=== PATIENT | male | born 1940 | race Caucasian/White ===

== ENCOUNTER 2022-01-28 22:12 | Emergency (ER) | payer MEDICARE, OTHER ==
[2022-01-28 22:46] LABS: BILIRUBIN,URINE NEGATIVE (NEGATIVE); GLUCOSE, URINE (UA) NEGATIVE (NEGATIVE); KETONES,URINE (UA) NEGATIVE (NEGATIVE); LEUKOCYTE ESTERASE, URINE SMALL (NEGATIVE); NITRITE,URINE NEGATIVE (NEGATIVE); OCCULT BLOOD,URINE SMALL (NEGATIVE); PROTEIN,URINE TRACE mg/dL (NEGATIVE); UROBILINOGEN,URINE 0.2 (NORMAL) E.U./dL (NORMAL)
[2022-01-28 22:54] LABS: CLARITY,URINE HAZY (CLEAR)
[2022-01-28 22:56] LABS: BACTERIA,URINE Many /HPF (None Seen); SQUAMOUS EPITHELIAL CELL,UR RARE Squamous (<= Few); WBC,URINE >25 /HPF (0-3)
[2022-01-28] MEDS ORDERED: cefTRIAXone 1 GM VIAL IM STA (23:46)
[2022-01-28] MEDS ORDERED: LIDOCAINE 1% 2 ML VIAL MC ONE (23:46)
--- NOTE | 2022-01-28 23:49 | ED Physician Documentation ---
History of Present Illness - Stated complaint Stated Complaint: MALE - Chief complaint Chief Complaint: UTI - History obtained from History obtained from: Patient - History of Present Illness Timing: Today Pain level max: 3 Pain level now: 2 - Additonal information Additional information: Patient is an 81-year-old male who presents to the emergency department with dysuria and urinary frequency today. Similar to prior UTIs. No fever. No chills. No back pain. No vomiting. No nausea. No abdominal pain. He states that his doctor called an antibiotic in for him but he has not been able to get to the pharmacy today to pick it up. He is unsure which antibiotic it is. Review of Systems Constitutional: denies: Fever, Chills Cardiac: denies: Chest pain / pressure, Palpitations Respiratory: denies: Cough GI: reports: Other (No pain with bowel movements.). denies: Vomiting, Diarrhea, Hematemesis : reports: Other (Has a history of prostate enlargement and UTIs, this feels similar) Skin: denies: Rash Musculoskeletal: denies: Neck pain PD PAST MEDICAL HISTORY - Past Medical History Past Medical History: Yes Cardiovascular: Hypertension, High cholesterol Endocrine/Autoimmune: HyPOthyroidism : Benign prostate hypertrophy - Past Surgical History Past Surgical History: Yes General: Hiatal hernia repair Cardiovascular: Other - Allergies Allergies/Adverse Reactions: Allergies Allergy/AdvReac Type Severity Reaction Status Date / Time lisinopril Allergy Respiratory Verified 01/28/22 22:32 - Social History Does the pt smoke?: No Smoking Status: Never smoker Does the pt drink ETOH?: No Does the pt have substance abuse?: No - Immunizations Immunizations are current?: Yes PD ED PE NORMAL - Vitals Vital signs reviewed: Yes - General General: Alert and oriented X 3, No acute distress - HEENT HEENT: Moist mucous membranes - Neck Neck: Supple, no meningeal sign - Cardiac Cardiac: RRR - Respiratory Respiratory: No respiratory distress, Clear bilaterally - Abdomen Abdomen: Soft, Non tender, Non distended - Back Back: No CVA TTP - Derm Derm: Warm and dry - Neuro Neuro: Alert and oriented X 3 Results - Vitals Vitals: Vital Signs - 24 hr 01/28/22 22:28 Temperature 36.6 C Heart Rate 74 Respiratory 18 Rate Blood Pressure 185/85 H O2 Saturation 98 Oxygen O2 Source Room air - Labs Labs: Laboratory Tests 01/28/22 22:35 Urine Color YELLOW Urine Clarity HAZY Urine pH 6.0 Ur Specific [place] 1.025 Urine Protein TRACE Urine Glucose (UA) NEGATIVE Urine Ketones NEGATIVE Urine Occult Blood SMALL H Urine Nitrite NEGATIVE Urine Bilirubin NEGATIVE Urine Urobilinogen 0.2 (NORMAL) Ur Leukocyte Esterase SMALL H Urine RBC 6-10 H Urine WBC >25 H Ur Squamous Epith Cells RARE Squamous Urine Bacteria Many H Ur Microscopic Review INDICATED Urine Culture Comments INDICATED PD MEDICAL DECISION MAKING - ED course Complexity details: reviewed results, considered differential (No evidence of pyelonephritis, sepsis, fever.), d/w patient ED course: 81-year-old male with a UTI. Given a dose of Rocephin here. He will start his antibiotic from his doctor tomorrow. He is unsure what antibiotic they called in. Patient counseled regarding signs and symptoms for which I believe and urgent re-evaluation would be necessary. Patient with good understanding of and agreement to plan and is comfortable going home at this time This document was made in part using voice recognition software. While efforts are made to proofread this document, sound alike and grammatical errors may occur. Departure - Departure Disposition: 01 Home, Self Care Clinical Impression: UTI (urinary tract infection) Qualifiers: Urinary tract infection type: acute cystitis Hematuria presence: without hematuria Qualified Code(s): N30.00 - Acute cystitis without hematuria Condition: Good Instructions: ED UTI Cystitis Male Follow-Up: Matt Mixon MD [Primary Care Provider] - Within 1 week Comments: Please start the antibiotics that were called in by your doctor tomorrow. You were given Rocephin tonight. Please return if you worsen.
[2022-01-28 23:59] VITALS: BP 155/82
== END 2022-01-29 00:06 | disposition home or self-care (01) ==
LOC: ED 22:12
DX: N30.00 Acute cystitis without hematuria (principal)
CPT/HCPCS: 81001; 81003; 87086; 87181; 96372; 99282; 99283

== ENCOUNTER 2022-01-29 18:58 | Emergency (ER) | payer MEDICARE ==
[2022-01-29] MEDS ORDERED: LIDOCAINE 2% URO-JET 5 ML SYRINGE UR STA (19:54)
--- NOTE | 2022-01-29 20:16 | ED Physician Documentation ---
PD HPI MALE - Stated complaint Stated Complaint: MALE - Chief complaint Chief Complaint: UTI - History obtained from History obtained from: Patient - History of Present Illness Timing - onset: Today Timing - duration: Days (1) Timing - details: Gradual onset Pain level max: 4 Pain level now: 3 - Additional information Additional information: Patient is an 81-year-old male who presents to the emergency department after being diagnosed with a UTI yesterday. He was given a shot of Rocephin yesterday. Picked up oral antibiotics from his doctor today. He states he is having difficulty urinating and feeling like he is not emptying his bladder fully. He states that he has needed a catheter in the past when he has a UTI. He is here requesting the catheter be placed. Review of Systems Constitutional: denies: Fever, Chills GI: denies: Abdominal Pain, Vomiting, Diarrhea Skin: denies: Rash Musculoskeletal: denies: Neck pain, Back pain Neurologic: denies: Headache PD PAST MEDICAL HISTORY - Past Medical History Past Medical History: Yes Cardiovascular: Hypertension, High cholesterol Endocrine/Autoimmune: HyPOthyroidism : Benign prostate hypertrophy - Past Surgical History Past Surgical History: Yes General: Hiatal hernia repair Cardiovascular: Other - Allergies Allergies/Adverse Reactions: Allergies Allergy/AdvReac Type Severity Reaction Status Date / Time lisinopril Allergy Respiratory Verified 01/29/22 19:09 [id number] Reductase AdvReac Hives Verified 01/29/22 19:09 Inhibitor - Social History Does the pt smoke?: No Smoking Status: Never smoker Does the pt drink ETOH?: No Does the pt have substance abuse?: No - Immunizations Immunizations are current?: Yes PD ED PE NORMAL - Vitals Vital signs reviewed: Yes - General General: Alert and oriented X 3, No acute distress, Well developed/nourished - HEENT HEENT: Moist mucous membranes - Neck Neck: Supple, no meningeal sign - Cardiac Cardiac: RRR - Respiratory Respiratory: No respiratory distress, Clear bilaterally - Abdomen Abdomen: Soft, Non tender, Non distended - Back Back: No CVA TTP - Derm Derm: Warm and dry - Neuro Neuro: Alert and oriented X 3 - Psych Psych: Normal mood, Normal affect Results - Vitals Vitals: Vital Signs - 24 hr 01/29/22 01/29/22 01/29/22 19:10 19:59 20:23 Temperature 36.7 C 36.7 C Heart Rate 63 62 Respiratory 18 18 Rate Blood Pressure 145/80 H 144/79 H O2 Saturation 97 98 Oxygen O2 Source Room air PD MEDICAL DECISION MAKING - ED course Complexity details: reviewed old records, considered differential, d/w patient ED course: Patient had approximately 490 mL on bladder scan postvoid residual. A Saldana catheter was placed. Tolerated well. No complications. He will continue his current antibiotics and follow-up with his doctor for Saldana removal in a few days and voiding trial. Patient counseled regarding signs and symptoms for which I believe and urgent re-evaluation would be necessary. Patient with good understanding of and agreement to plan and is comfortable going home at this time This document was made in part using voice recognition software. While efforts are made to proofread this document, sound alike and grammatical errors may occur. Patient believes that he was placed on cefdinir by his doctor Departure - Departure Disposition: 01 Home, Self Care Clinical Impression: Acute urinary retention Condition: Good Instructions: ED Catheter Care Shana, ED Retention Urinary Male Follow-Up: Matt Mixon MD [Primary Care Provider] - Within 3 Days Comments: Please follow-up with your doctor for further care in about 3 days. Continue the antibiotics as previously prescribed. Leave the catheter in place. Your doctor will need to remove the catheter and give you a voiding trial. Do not try to pull out the catheter as there is a balloon on the end that needs to be deflated first Discharge Date/Time: 01/29/22 20:23
[2022-01-29 20:24] VITALS: BP 144/79
== END 2022-01-29 20:23 | disposition home or self-care (01) ==
LOC: ED 18:58
DX: R33.9 Retention of urine, unspecified (principal); N30.00 Acute cystitis without hematuria
CPT/HCPCS: 51702; 51798; 81001; 81003; 87086; 87181; 96372; 99282; 99283; 99284